=== PATIENT | female | born 1975 | race Caucasian/White ===

== ENCOUNTER 2016-12-01 11:15 | Outpatient (CLI) | payer OTHER ==
--- NOTE | 2016-12-01 12:04 | DIAGNOSTIC IMAGING REPORT ---
PROCEDURE: XR LUMBAR SPINE 2 OR 3 VIEWS INDICATION: LBP TECHNIQUE: Three views. COMPARISON: None. FINDINGS: Osseous structures and disc spaces are normal. No evidence of an acute process or fracture. IMPRESSION: 1. Negative lumbar spine.
== END 2016-12-01 23:00 | disposition home or self-care (01) ==
LOC: XR SRH 11:15
DX: M54.5 Low back pain (principal); M79.606 Pain in leg, unspecified